=== PATIENT | male | born 1965 | race Hispanic/Latino ===

== ENCOUNTER 2023-08-09 23:03 | Inpatient (IN) | payer OTHER ==
[~2023-08-09] VITALS: Ht 177.8 cm; Wt 88.7 kg
[~2023-08-09 23:03] MED LIST: ACETAMINOP650 MG/201 PEG; ASPIRIN CHEW81 MG PEG; BAQSIMI3 MG PO; CAL-GEST200 MG; CARVEDILOL12.5 MG PO; CLOPIDOGREL75 MG PO; FERROUS SU300 MG/51 PEG; FUROSEMIDE40 MG/5 ML PEG; GUAIFENESIN-DM 15 ML GT; HYDRALAZINE HCL25 MG PO; LANSOPRAZOLE30 MG PEG; LASIX20 MG PO; LIPITOR20 MG PO; LYSIPLEX PLUS177 ML PEG; MAGNESIUM-ALUM360 ML PEG; MELATONIN3 MG GT; ONDANSETRON ODT4 MG PO; VITAMIN C500 MG/15 PEG
[2023-08-09 23:14] VITALS: TEMP 98.1
[2023-08-10] VITALS (30 sets, daily range): BP systolic 80–158; BP diastolic 57–94; PULSE 73–95; RESP 13–25; TEMP 97.5–97.9; O2SAT 52–100
[2023-08-10] LABS: BASOPHILS % 0.5 % (0.0-1.0); EOSINOPHILS # (AUTO) 0.2 (0.0-0.4); EOSINOPHILS % 3.5 % (0.0-6.0); HEMATOCRIT 31.2 % (38.2-49.6); HEMOGLOBIN 9.1 g/dL (14.0-18.0); LYMPHOCYTES # (AUTO) 0.5 (1.0-3.2); LYMPHOCYTES % 9.3 % (18.0-39.1); MEAN CORPUSCULAR HEMOGLOBIN 28.1 pg (28-32); MEAN CORPUSCULAR HGB CONC 29.2 g/dL (31-35); MEAN CORPUSCULAR VOLUME 96.3 fL (81-99); MONOCYTES # (AUTO) 0.5 (0.2-0.8); MONOCYTES % 9.7 % (4.4-11.3); NEUTROPHILS # (AUTO) 4.2 (2.1-6.9); NEUTROPHILS % 76.8 % (38.7-80.0); PLATELET COUNT 182 x10e3/uL (140-360); RED BLOOD COUNT 3.24 x10e6/uL (4.3-5.7); RED CELL DISTRIBUTION WIDTH 14.4 % (11.7-14.4); WHITE BLOOD COUNT 5.48 x10e3/uL (4.8-10.8)
[2023-08-10 00:16] LABS: BILIRUBIN,URINE NEGATIVE (NEGATIVE); CLARITY,URINE CLEAR (CLEAR); COLOR,URINE YELLOW (YELLOW); GLUCOSE, URINE 500 (NEGATIVE); KETONES,URINE NEGATIVE (NEGATIVE); LEUKOCYTE ESTERASE ,URINE NEGATIVE (NEGATIVE); NITRITE,URINE NEGATIVE (NEGATIVE); PH,URINE 6 (5 - 7); PROTEIN,URINE DIPSTICK 2+ (NEGATIVE); URINE UROBILINOGEN 0.2 mg/dL (0.2 - 1)
[2023-08-10 00:17] LABS: BACTERIA,URINE FEW /HPF; EPITHELIAL CELLS,URINE FEW /LPF; RBC,URINE 0-5 /HPF (0-5); WBC,URINE (MAN) 0-5 /HPF (0-5)
[2023-08-10 00:21] LABS: ALBUMIN 2.7 g/dL (3.5-5.0); ALBUMIN/GLOBULIN RATIO 0.7 (0.8-2.0); ANION GAP 11.7 mmol/L (8-16); BILIRUBIN,TOTAL 0.5 mg/dL (0.2-1.2); CALCIUM 7.8 mg/dL (8.4-10.2); CREATININE, SERUM 2.28 mg/dL (0.72-1.25); TOTAL PROTEIN 6.8 g/dL (6.5-8.1)
[2023-08-10 00:30] LABS: POTASSIUM 2.7 mmol/L (3.5-5.1)
[2023-08-10] MEDS ORDERED: IOPAMIDOL 370 MG/ML 100 ML INFUS..BTL INJ ONE (00:39)
[2023-08-10 00:48] LABS: TROPONIN I 0.015 ng/mL (0-0.300)
[2023-08-10] MEDS: SODIUM CHLORIDE 0.9% 1000ML 1,000 ML IV STA (00:55)
[2023-08-10] MEDS ORDERED: HYDRALAZINE HCL 20 MG/ML VIAL IV PRN (04:30)
[2023-08-10] MEDS ORDERED: HYDROCODONE/APAP 10MG-325MG TAB PO PRN (05:00)
[2023-08-10] MEDS ORDERED: DIPHENHYDRAMINE HCL 25 MG CAP PO PRN (05:00)
[2023-08-10] MEDS ORDERED: FUROSEMIDE20 MG PEG (05:25)
[2023-08-10] MEDS ORDERED: ATORVASTATIN CA80 MG PO (05:25)
[2023-08-10] MEDS ORDERED: JARDIANCE25 MG PO (05:25)
[2023-08-10] MEDS ORDERED: ASPIRIN81 MG PO (05:25)
[2023-08-10 07:54] LABS: TROPONIN I 0.011 ng/mL (0-0.300)
[2023-08-10] MEDS: POTASSIUM CHLORIDE 20MEQ/100ML 100 ML IV ONE ×2 (08:51→13:20)
[2023-08-10] MEDS: FUROSEMIDE INJ 10 MG/ML 4 ML VIAL IV SCH (08:53)
[2023-08-10] MEDS: POTASSIUM CHLORIDE 20 MEQ TAB CR PO ONE (08:53)
[2023-08-10] MEDS: ONDANSETRON HCL INJ 2MG/ML 2ML 2 MG/ML VIAL IV PRN (08:53)
[2023-08-10] MEDS: Morphine 4mg INJECTION 4 MG/ML INJ IV PRN (08:54)
[2023-08-10 11:26] LABS: MAGNESIUM 1.6 MG/DL (1.3-2.1)
[2023-08-10 11:32] LABS: TROPONIN I 0.009 ng/mL (0-0.300)
[2023-08-10 11:37] LABS: ALBUMIN 2.5 g/dL (3.5-5.0); ALBUMIN/GLOBULIN RATIO 0.8 (0.8-2.0); ANION GAP 14.7 mmol/L (8-16); BILIRUBIN,TOTAL 0.6 mg/dL (0.2-1.2); CALCIUM 7.1 mg/dL (8.4-10.2); CREATININE, SERUM 2.34 mg/dL (0.72-1.25); TOTAL PROTEIN 5.8 g/dL (6.5-8.1)
[2023-08-10 11:40] LABS: POTASSIUM 2.7 mmol/L (3.5-5.1)
[2023-08-10 13:29] LABS: ABG HCO3 42 mmol/L (22-26); ABG PCO2 106 mmHg (35-45); ABG PH 7.21 (7.35-7.45); ABG PO2 63 mmHg (80-105); ABG TCO2 45
[2023-08-10] MEDS: SODIUM CHLORIDE 0.9% 100 ML ONE (13:37)
[2023-08-10] MEDS ORDERED: FUROSEMIDE INJ 10 MG/ML 4 ML VIAL IV ONE (15:30)
[2023-08-10 15:47] LABS: TROPONIN I 0.048 ng/mL (0-0.300)
[2023-08-10] MEDS: FUROSEMIDE INJ 100 MG in SODIUM CHLORIDE 0.9% 90 ML IV SCH (15:54)
[2023-08-10 17:48] LABS: ABG PH 7.27 (7.35-7.45)
[2023-08-10 17:49] LABS: ABG HCO3 42 mmol/L (22-26); ABG PCO2 92 mmHg (35-45); ABG PO2 83 mmHg (80-105); ABG TCO2 45
[2023-08-10] MEDS: MAGNESIUM SULFATE 2GM/50ML 50 ML IV ONE (18:03)
[2023-08-10] MEDS ORDERED: DEXTROSE 50% SYRINGE 50 ML IV PRN (18:15)
[2023-08-10] MEDS: ATORVASTATIN 40 MG TAB PO SCH (20:13)
[2023-08-10] MEDS: CALCIUM CARBONATE 500 MG CHEWABLE TABS PO SCH (20:13)
[2023-08-10] MEDS: INSULIN LISPRO 100 UNIT/1 ML 3ML VIAL SQ SCH (20:18)
[2023-08-10] MEDS ORDERED: FUROSEMIDE INJ 10 MG/ML 4 ML VIAL IV SCH (21:00)
[2023-08-11] VITALS (27 sets, daily range): BP systolic 107–137; BP diastolic 74–99; PULSE 77–97; RESP 13–32; TEMP 97.8–98.3; O2SAT 89–100
[2023-08-11] MEDS: MUPIROCIN 2% OINT 22 GM TUBE TOP SCH (07:39)
[2023-08-11] MEDS: CLOPIDOGREL BISULFATE 75 MG TAB PO SCH (08:02)
[2023-08-11 08:55] LABS: BASOPHILS % 0.2 % (0.0-1.0); EOSINOPHILS # (AUTO) 0.1 (0.0-0.4); EOSINOPHILS % 1.4 % (0.0-6.0); HEMOGLOBIN 8.1 g/dL (14.0-18.0); LYMPHOCYTES # (AUTO) 0.5 (1.0-3.2); LYMPHOCYTES % 5.9 % (18.0-39.1); MEAN CORPUSCULAR HEMOGLOBIN 27.9 pg (28-32); MEAN CORPUSCULAR HGB CONC 28.9 g/dL (31-35); MEAN CORPUSCULAR VOLUME 96.6 fL (81-99); MONOCYTES # (AUTO) 0.5 (0.2-0.8); MONOCYTES % 5.4 % (4.4-11.3); NEUTROPHILS # (AUTO) 7.8 (2.1-6.9); NEUTROPHILS % 86.7 % (38.7-80.0); PLATELET COUNT 156 x10e3/uL (140-360); RED CELL DISTRIBUTION WIDTH 14.5 % (11.7-14.4); WHITE BLOOD COUNT 9.02 x10e3/uL (4.8-10.8)
[2023-08-11 09:16] LABS: ALBUMIN 2.3 g/dL (3.5-5.0); ALBUMIN/GLOBULIN RATIO 0.6 (0.8-2.0); BILIRUBIN,TOTAL 0.5 mg/dL (0.2-1.2); CALCIUM 7.3 mg/dL (8.4-10.2); CREATININE, SERUM 2.69 mg/dL (0.72-1.25); TOTAL PROTEIN 5.9 g/dL (6.5-8.1)
[2023-08-11 09:51] LABS: TROPONIN I 0.476 ng/mL (0-0.300)
[2023-08-11 10:55] LABS: ABG HCO3 42 mmol/L (22-26); ABG PCO2 77 mmHg (35-45); ABG PH 7.34 (7.35-7.45); ABG PO2 80 mmHg (80-105); ABG TCO2 44
[2023-08-11] MEDS: POTASSIUM CHLORIDE 20MEQ/100ML 100 ML IV SCH (16:05)
[2023-08-11] MEDS: CALCIUM CARBONATE 500 MG CHEWABLE TABS PO SCH (16:05)
[2023-08-11] MEDS: CARVEDILOL 3.125 MG TAB PO SCH (20:37)
[2023-08-12] VITALS (31 sets, daily range): BP systolic 125–151; BP diastolic 72–97; PULSE 77–102; RESP 0–33; TEMP 97.5–98.9; O2SAT 90–100
[2023-08-12 07:21] LABS: BASOPHILS % 0.3 % (0.0-1.0); EOSINOPHILS # (AUTO) 0.1 (0.0-0.4); EOSINOPHILS % 1.4 % (0.0-6.0); HEMATOCRIT 27.7 % (38.2-49.6); HEMOGLOBIN 8.3 g/dL (14.0-18.0); LYMPHOCYTES # (AUTO) 0.7 (1.0-3.2); LYMPHOCYTES % 8.3 % (18.0-39.1); MEAN CORPUSCULAR VOLUME 93.6 fL (81-99); MONOCYTES # (AUTO) 0.6 (0.2-0.8); MONOCYTES % 7.6 % (4.4-11.3); NEUTROPHILS # (AUTO) 6.4 (2.1-6.9); PLATELET COUNT 154 x10e3/uL (140-360); RED BLOOD COUNT 2.96 x10e6/uL (4.3-5.7); RED CELL DISTRIBUTION WIDTH 14.4 % (11.7-14.4); WHITE BLOOD COUNT 7.85 x10e3/uL (4.8-10.8)
[2023-08-12 07:53] LABS: ALBUMIN 2.4 g/dL (3.5-5.0); ALBUMIN/GLOBULIN RATIO 0.6 (0.8-2.0); ANION GAP 15.8 mmol/L (8-16); BILIRUBIN,TOTAL 0.7 mg/dL (0.2-1.2); CALCIUM 7.7 mg/dL (8.4-10.2); CREATININE, SERUM 2.66 mg/dL (0.72-1.25); TOTAL PROTEIN 6.1 g/dL (6.5-8.1)
[2023-08-12 07:58] LABS: POTASSIUM 2.8 mmol/L (3.5-5.1)
[2023-08-12] MEDS: POTASSIUM CHLORIDE 20 MEQ TAB CR PO SCH (08:33)
[2023-08-12 08:38] LABS: TOTAL PROTEIN, URINE 62.3 mg/dL (1-14)
[2023-08-12 08:40] LABS: TOTAL PROTEIN 24HR, URINE 1806.7 mg/24hr (50-100)
[2023-08-12 08:48] LABS: CREATININE,URINE RANDOM 13.13 mg/dL (63-166); TOTAL PROTEIN, URINE 42.8 mg/dL (1-14)
[2023-08-12] MEDS: KCL 20 MEQ PACKET/ ORAL SOLN NG ONE (11:45)
[2023-08-12] MEDS: ACETAZOLAMIDE SODIUM 500 MG/VIAL IV ONE (14:31)
[2023-08-12] MEDS ORDERED: POTASSIUM CHLORIDE 20 MEQ TAB CR PO SCH (17:00)
[2023-08-12] MEDS: KCL 20 MEQ PACKET/ ORAL SOLN NG SCH (20:31)
[2023-08-13] VITALS (38 sets, daily range): BP systolic 121–151; BP diastolic 78–105; PULSE 65–98; RESP 12–31; TEMP 97.9–98.6; O2SAT 94–100
[2023-08-13 06:16] LABS: BASOPHILS % 0.2 % (0.0-1.0); EOSINOPHILS # (AUTO) 0.1 (0.0-0.4); EOSINOPHILS % 2.6 % (0.0-6.0); HEMATOCRIT 25.9 % (38.2-49.6); HEMOGLOBIN 7.6 g/dL (14.0-18.0); LYMPHOCYTES # (AUTO) 0.7 (1.0-3.2); LYMPHOCYTES % 12.8 % (18.0-39.1); MEAN CORPUSCULAR HEMOGLOBIN 27.4 pg (28-32); MEAN CORPUSCULAR HGB CONC 29.3 g/dL (31-35); MEAN CORPUSCULAR VOLUME 93.5 fL (81-99); MONOCYTES # (AUTO) 0.6 (0.2-0.8); MONOCYTES % 10.9 % (4.4-11.3); NEUTROPHILS # (AUTO) 3.9 (2.1-6.9); NEUTROPHILS % 72.9 % (38.7-80.0); PLATELET COUNT 151 x10e3/uL (140-360); RED BLOOD COUNT 2.77 x10e6/uL (4.3-5.7); RED CELL DISTRIBUTION WIDTH 14.6 % (11.7-14.4); WHITE BLOOD COUNT 5.39 x10e3/uL (4.8-10.8)
[2023-08-13 09:36] LABS: ALBUMIN 2.3 g/dL (3.5-5.0); ALBUMIN/GLOBULIN RATIO 0.7 (0.8-2.0); ANION GAP 16.6 mmol/L (8-16); BILIRUBIN,TOTAL 0.6 mg/dL (0.2-1.2); CALCIUM 7.6 mg/dL (8.4-10.2); CREATININE, SERUM 2.75 mg/dL (0.72-1.25); POTASSIUM 3.6 mmol/L (3.5-5.1); TOTAL PROTEIN 5.6 g/dL (6.5-8.1)
[2023-08-13] MEDS: ACETAZOLAMIDE SODIUM 500 MG/VIAL IV SCH (10:02)
[2023-08-13 12:15] LABS: ABG PH 7.43 (7.35-7.45)
[2023-08-13 12:16] LABS: ABG HCO3 48 mmol/L (22-26); ABG PCO2 73 mmHg (35-45); ABG PO2 61 mmHg (80-105); ABG TCO2 > 50
[2023-08-13] MEDS: DEXTROSE 5% 250ML 250 ML IV ONE (21:15)
[2023-08-14] VITALS (8 sets, daily range): BP systolic 135–142; BP diastolic 77–82; PULSE 62–85; RESP 16–20; TEMP 98–99.6; O2SAT 96–100
[2023-08-14 06:43] LABS: BASOPHILS % 0.2 % (0.0-1.0); EOSINOPHILS # (AUTO) 0.1 (0.0-0.4); EOSINOPHILS % 2.6 % (0.0-6.0); HEMOGLOBIN 7.4 g/dL (14.0-18.0); LYMPHOCYTES # (AUTO) 0.7 (1.0-3.2); LYMPHOCYTES % 13.6 % (18.0-39.1); MEAN CORPUSCULAR HEMOGLOBIN 28.1 pg (28-32); MEAN CORPUSCULAR HGB CONC 29.6 g/dL (31-35); MEAN CORPUSCULAR VOLUME 95.1 fL (81-99); MONOCYTES # (AUTO) 0.6 (0.2-0.8); MONOCYTES % 11.8 % (4.4-11.3); NEUTROPHILS # (AUTO) 3.5 (2.1-6.9); NEUTROPHILS % 71.4 % (38.7-80.0); PLATELET COUNT 152 x10e3/uL (140-360); RED BLOOD COUNT 2.63 x10e6/uL (4.3-5.7); RED CELL DISTRIBUTION WIDTH 14.8 % (11.7-14.4); WHITE BLOOD COUNT 4.92 x10e3/uL (4.8-10.8)
[2023-08-14 07:08] LABS: ALBUMIN 2.2 g/dL (3.5-5.0); ALBUMIN/GLOBULIN RATIO 0.6 (0.8-2.0); ANION GAP 15.7 mmol/L (8-16); BILIRUBIN,TOTAL 0.5 mg/dL (0.2-1.2); CALCIUM 7.9 mg/dL (8.4-10.2); CREATININE, SERUM 2.75 mg/dL (0.72-1.25); POTASSIUM 3.7 mmol/L (3.5-5.1); TOTAL PROTEIN 5.9 g/dL (6.5-8.1)
[2023-08-14 07:26] LABS: FOLATE 7.7 ng/mL (7.0-15.4)
[2023-08-14 07:27] LABS: FERRITIN 72.54 ng/mL (21.81-274.66)
[2023-08-14] MEDS ORDERED: IRON SUCROSE 100 MG in SODIUM CHLORIDE 0.9% 100 ML IV SCH (13:00)
[2023-08-14] MEDS ORDERED: ACETAZOLAMIDE500 MG IV (13:58)
[2023-08-14] MEDS ORDERED: HYDRALAZIN20 MG/1 ML IV (13:58)
[2023-08-14] MEDS ORDERED: COREG3.125 MG PO (13:58)
[2023-08-14] MEDS ORDERED: TUMS200 MG PO (13:58)
[2023-08-14] MEDS ORDERED: DEXTROSE 50%-WA50 M1 IV (13:58)
[2023-08-14] MEDS ORDERED: POTASSIUM CHLO20 MEQ PEG (13:58)
[2023-08-14] MEDS ORDERED: FUROSEMIDE10 MG/1 M2 IV (13:58)
[2023-08-14] MEDS ORDERED: ONDANSETRON4 MG/2 M1 IV (13:58)
[2023-08-14] MEDS ORDERED: Insulin Lispro SQ (13:58)
[2023-08-14] MEDS ORDERED: MUPIROCIN22 GM TOP (13:58)
[2023-08-14] MEDS ORDERED: VENOFER100 MG/5 M IV (13:58)
[2023-08-14] MEDS: SODIUM FERRIC GLUCONATE COMPLX 125 MG in SODIUM CHLORIDE 0.9% 100 ML IV SCH (15:04)
[2023-08-20 04:39] LABS: ABG HCO3 42 mmol/L (22-26); ABG PCO2 92 mmHg (35-45); ABG PH 7.27 (7.35-7.45); ABG PO2 83 mmHg (80-105); ABG TCO2 45
[2023-08-20 04:39] LABS: ABG HCO3 42 mmol/L (22-26); ABG PH 7.21 (7.35-7.45); ABG PO2 63 mmHg (80-105); ABG TCO2 45
[2023-08-20 04:40] LABS: ABG HCO3 42 mmol/L (22-26); ABG PCO2 77 mmHg (35-45); ABG PH 7.34 (7.35-7.45); ABG PO2 80 mmHg (80-105); ABG TCO2 44
[2023-08-20 04:40] LABS: ABG HCO3 48 mmol/L (22-26); ABG PCO2 73 mmHg (35-45); ABG PH 7.43 (7.35-7.45); ABG PO2 61 mmHg (80-105); ABG TCO2 > 50
== END 2023-08-14 20:29 | disposition short-term general hospital (02) | DRG 291 ==
LOC: ER 23:10 → ERHOLD 08-10 03:54 → MED/SURG2 08-10 04:54 → ICU 08-10 12:25 → MED/SURG3 08-14 08:05
PROVIDERS: ADMIT Internal Medicine; ATTEND Internal Medicine
PROC: 5A09357 Assistance with Respiratory Ventilation, Less than 24 Consecutive Hours, Continuous Positive Airway Pressure (ICD-10-PCS; principal; 2023-08-10)
DX: I13.0 Hypertensive heart and chronic kidney disease with heart failure and stage 1 through stage 4 chronic kidney disease, or unspecified chronic kidney disease (principal); I50.23 Acute on chronic systolic (congestive) heart failure; J96.21 Acute and chronic respiratory failure with hypoxia; J96.22 Acute and chronic respiratory failure with hypercapnia; I69.351 Hemiplegia and hemiparesis following cerebral infarction affecting right dominant side; E87.0 Hyperosmolality and hypernatremia; K94.22 Gastrostomy infection; R62.7 Adult failure to thrive; E11.22 Type 2 diabetes mellitus with diabetic chronic kidney disease; Z99.81 Dependence on supplemental oxygen; N18.32 Chronic kidney disease, stage 3b; E87.6 Hypokalemia; E83.42 Hypomagnesemia; E78.49 Other hyperlipidemia; R19.7 Diarrhea, unspecified; D50.9 Iron deficiency anemia, unspecified; R13.10 Dysphagia, unspecified; Z11.52 Encounter for screening for COVID-19; Z79.82 Long term (current) use of aspirin; Z79.02 Long term (current) use of antithrombotics/antiplatelets; Z91.013 Allergy to seafood; Z53.8 Procedure and treatment not carried out for other reasons
CPT/HCPCS: 36415; 36600; 71045; 74177; 80053; 81001; 81050; 82550; 82570; 82607; 82728; 82746; 82805; 82948; 83540; 83605; 83690; 83735; 83880; 84132; 84156; 84466; 84484; 85025; 85045; 92950; 93005; 93306; 94660; 94799; 96372; 99284; J1940; J2270; J2405; J2916; J3475; J3480; J7050; J7070; Q9967; U0002

== ENCOUNTER 2023-10-19 20:44 | Emergency (ER) | payer OTHER ==
[~2023-10-19] VITALS: Ht 177.8 cm; Wt 88.5 kg
[~2023-10-19 20:44] MED LIST changes: +ACETAZOLAMIDE500 MG IV; +ASPIRIN81 MG PO; +ATORVASTATIN CA80 MG PO; +COREG3.125 MG PO; +DEXTROSE 50%-WA50 M1 IV; +FUROSEMIDE10 MG/1 M2 IV; +FUROSEMIDE20 MG PEG; +HYDRALAZIN20 MG/1 ML IV; +Insulin Lispro SQ; +JARDIANCE25 MG PO; +MUPIROCIN22 GM TOP; +ONDANSETRON4 MG/2 M1 IV; +POTASSIUM CHLO20 MEQ PEG; +TUMS200 MG PO; +VENOFER100 MG/5 M IV
[2023-10-19 20:50] VITALS: TEMP 98.1
[2023-10-19] MEDS ORDERED: DIATRIZOATE MEGL/DIATRIZOA SOD 30 ML BTL PO ONE (21:16)
[2023-10-19 23:30] VITALS: PULSE 78; RESP 18; O2SAT 100
== END 2023-10-19 23:07 | disposition home or self-care (01) ==
LOC: ER 20:46
DX: Z43.1 Encounter for attention to gastrostomy (principal); M25.562 Pain in left knee; I10 Essential (primary) hypertension; E11.9 Type 2 diabetes mellitus without complications; I50.9 Heart failure, unspecified; E78.5 Hyperlipidemia, unspecified; Z86.73 Personal history of transient ischemic attack (TIA), and cerebral infarction without residual deficits
CPT/HCPCS: 43762; 73562; 74018; 99283; Q9963

== ENCOUNTER 2023-10-29 16:12 | Inpatient (IN) | payer OTHER ==
[~2023-10-29] VITALS: Ht 177.8 cm; Wt 100.0 kg
[~2023-10-29 16:12] MED LIST changes: +MIDAZOLAM HCL 2 MG/2 ML VIAL ONE
[2023-10-29 16:13] VITALS: TEMP 97.7
[2023-10-29 17:00] VITALS: PULSE 93; RESP 18
[2023-10-29 18:11] LABS: BASOPHILS % 0.5 % (0.0-1.0); EOSINOPHILS # (AUTO) 0.1 (0.0-0.4); EOSINOPHILS % 1.1 % (0.0-6.0); HEMATOCRIT 33.4 % (38.2-49.6); HEMOGLOBIN 9.3 g/dL (14.0-18.0); LYMPHOCYTES # (AUTO) 0.5 (1.0-3.2); LYMPHOCYTES % 8.6 % (18.0-39.1); MEAN CORPUSCULAR HEMOGLOBIN 27.4 pg (28-32); MEAN CORPUSCULAR HGB CONC 27.8 g/dL (31-35); MEAN CORPUSCULAR VOLUME 98.5 fL (81-99); MONOCYTES # (AUTO) 0.5 (0.2-0.8); MONOCYTES % 7.3 % (4.4-11.3); NEUTROPHILS # (AUTO) 5.1 (2.1-6.9); NEUTROPHILS % 82.2 % (38.7-80.0); PLATELET COUNT 210 x10e3/uL (140-360); RED BLOOD COUNT 3.39 x10e6/uL (4.3-5.7); RED CELL DISTRIBUTION WIDTH 14.6 % (11.7-14.4); WHITE BLOOD COUNT 6.18 x10e3/uL (4.8-10.8)
[2023-10-29 18:20] LABS: INR 1.06; PROTHROMBIN TIME 14.3 seconds (11.9-14.5)
[2023-10-29 18:21] LABS: PARTIAL THROMBOPLASTIN TIME 31.4 seconds (23.8-35.5)
[2023-10-29 18:32] LABS: ALBUMIN 2.7 g/dL (3.5-5.0); ALBUMIN/GLOBULIN RATIO 0.7 (0.8-2.0); ALKALINE PHOSPHATASE 119 IU/L (40-150); BILIRUBIN,TOTAL 0.4 mg/dL (0.2-1.2); BLOOD UREA NITROGEN 34 mg/dL (7-26); BUN/CREATININE RATIO 13 (6-25); CALCIUM 8.1 mg/dL (8.4-10.2); CARBON DIOXIDE 28 mmol/L (22-29); CHLORIDE 104 mmol/L (98-107); CREATINE KINASE 135 IU/L (30-200); CREATININE, SERUM 2.56 mg/dL (0.72-1.25); EST GLOMERULAR FILTRATION RATE 28 ML/MIN (>=60); GLUCOSE 116 mg/dL (74-118); SODIUM 146 mmol/L (136-145); TOTAL PROTEIN 6.7 g/dL (6.5-8.1)
[2023-10-29 18:35] LABS: ALANINE AMINOTRANSFERASE < 6 IU/L (0-55)
[2023-10-29 18:39] LABS: TROPONIN I 0.014 ng/mL (0-0.300)
[2023-10-29 18:43] LABS: PHOSPHORUS 3.8 MG/DL (2.3-4.7)
[2023-10-29 20:14] VITALS: PULSE 87; RESP 18; O2SAT 97
[2023-10-29] MEDS ORDERED: ONDANSETRON HCL INJ 2MG/ML 2ML 2 MG/ML VIAL IV PRN (23:15)
[2023-10-29] MEDS ORDERED: SODIUM CHLORIDE FLUSH 10 ML SYR INJ PRN (23:15)
[2023-10-30] VITALS (13 sets, daily range): BP systolic 137–167; BP diastolic 81–96; PULSE 82–91; RESP 18–20; TEMP 97.5–97.9; O2SAT 92–98
[2023-10-30] MEDS ORDERED: LIPITOR10 MG PO (05:30)
[2023-10-30] MEDS ORDERED: LANSOPRAZOLE30 MG PO (05:30)
[2023-10-30] MEDS ORDERED: ONDANSETRON ODT4 MG PO (05:30)
[2023-10-30] MEDS ORDERED: HYDRALAZINE HCL25 MG PO (05:30)
[2023-10-30] MEDS ORDERED: FUROSEMIDE20 MG PEG (05:30)
[2023-10-30 05:59] LABS: BASOPHILS % 0.6 % (0.0-1.0); EOSINOPHILS # (AUTO) 0.1 (0.0-0.4); EOSINOPHILS % 1.9 % (0.0-6.0); HEMATOCRIT 31.2 % (38.2-49.6); HEMOGLOBIN 8.7 g/dL (14.0-18.0); LYMPHOCYTES # (AUTO) 0.5 (1.0-3.2); LYMPHOCYTES % 10.2 % (18.0-39.1); MEAN CORPUSCULAR HEMOGLOBIN 27.4 pg (28-32); MEAN CORPUSCULAR HGB CONC 27.9 g/dL (31-35); MEAN CORPUSCULAR VOLUME 98.4 fL (81-99); MONOCYTES # (AUTO) 0.5 (0.2-0.8); MONOCYTES % 10.6 % (4.4-11.3); NEUTROPHILS # (AUTO) 3.7 (2.1-6.9); NEUTROPHILS % 76.5 % (38.7-80.0); PLATELET COUNT 184 x10e3/uL (140-360); RED BLOOD COUNT 3.17 x10e6/uL (4.3-5.7); RED CELL DISTRIBUTION WIDTH 14.6 % (11.7-14.4); WHITE BLOOD COUNT 4.79 x10e3/uL (4.8-10.8)
[2023-10-30 06:32] LABS: ALBUMIN 2.4 g/dL (3.5-5.0); ALBUMIN/GLOBULIN RATIO 0.6 (0.8-2.0); ALKALINE PHOSPHATASE 106 IU/L (40-150); ANION GAP 16.8 mmol/L (8-16); BILIRUBIN,TOTAL 0.4 mg/dL (0.2-1.2); BLOOD UREA NITROGEN 33 mg/dL (7-26); BUN/CREATININE RATIO 14 (6-25); CALCIUM 7.8 mg/dL (8.4-10.2); CARBON DIOXIDE 27 mmol/L (22-29); CHLORIDE 103 mmol/L (98-107); CREATININE, SERUM 2.39 mg/dL (0.72-1.25); EST GLOMERULAR FILTRATION RATE 31 ML/MIN (>=60); GLUCOSE 70 mg/dL (74-118); SODIUM 144 mmol/L (136-145); TOTAL PROTEIN 6.1 g/dL (6.5-8.1)
[2023-10-30 06:37] LABS: ALANINE AMINOTRANSFERASE < 6 IU/L (0-55)
[2023-10-30 06:38] LABS: POTASSIUM 2.8 mmol/L (3.5-5.1)
[2023-10-30 06:43] LABS: TROPONIN I 0.079 ng/mL (0-0.300)
[2023-10-30] MEDS: INSULIN REGULAR, HUMAN 100 UNIT/1 ML SQ SCH (07:30)
[2023-10-30 07:46] LABS: COLOR,URINE YELLOW (YELLOW)
[2023-10-30 07:47] LABS: CLARITY,URINE SL CLOUDY (CLEAR); GLUCOSE, URINE 2+ (NEGATIVE); KETONES,URINE NEGATIVE (NEGATIVE); LEUKOCYTE ESTERASE ,URINE TRACE (NEGATIVE); NITRITE,URINE NEGATIVE (NEGATIVE); PH,URINE 5.5 (5 - 7); PROTEIN,URINE DIPSTICK >=300 (NEGATIVE)
[2023-10-30 07:48] LABS: BILIRUBIN,URINE NEGATIVE (NEGATIVE); URINE UROBILINOGEN 0.2 mg/dL (0.2 - 1)
[2023-10-30 07:55] LABS: EPITHELIAL CELLS,URINE RARE /LPF
[2023-10-30 07:56] LABS: BACTERIA,URINE MODERATE /HPF
[2023-10-30 07:58] LABS: WBC,URINE (MAN) >50 /HPF (0-5)
[2023-10-30 08:00] LABS: TRANSITIONAL EPI CELLS,URINE RARE
[2023-10-30] MEDS: POTASSIUM CHLORIDE 20MEQ/100ML 100 ML IV ONE ×2 (08:08→10:38)
[2023-10-30] MEDS: D5.45%NS/KCL 20MEQ 1,000 ML IV SCH (08:33)
[2023-10-30] MEDS: VANCOMYCIN 250MG/5ML ORAL SOLN PEG SCH (13:00)
[2023-10-30] MEDS ORDERED: FENTANYL CITRATE/PF 100MCG/2 ML INJ ONE (14:43)
[2023-10-30 17:26] LABS: BODY FLUID APPEARANCE TURBID; BODY FLUID COLOR RED; BODY FLUID TYPE PLEURAL
[2023-10-30 17:30] LABS: CREATININE,URINE RANDOM 66.57 mg/dL (63-166)
[2023-10-30] MEDS: POTASSIUM CHLORIDE 20 MEQ TAB CR PO ONE (17:34)
[2023-10-30] MEDS: FUROSEMIDE INJ 10 MG/ML 2 ML VIAL IV SCH (17:34)
[2023-10-30 17:45] LABS: RBC,BODY FLUID 250000 cells/uL; WBC,BODY FLUID 342 cells/uL
[2023-10-30 17:48] LABS: TOTAL PROTEIN, URINE 278.1 mg/dL (1-14)
[2023-10-30 17:56] LABS: TROPONIN I 0.071 ng/mL (0-0.300)
[2023-10-30 18:14] LABS: LYMPHOCYTES,BODY FLUID 9 %; MONO/MACROPHG,BODY FLUID 64 %; NEUTROPHILS,BODY FLUID 27 %; TOTAL CELLS COUNTED (DIFF) 100
[2023-10-30] MEDS: DEXTROSE 50% SYRINGE 50 ML IV PRN (20:57)
[2023-10-30 20:58] LABS: ANION GAP 15.3 mmol/L (8-16); CALCIUM 7.9 mg/dL (8.4-10.2); CREATININE, SERUM 2.37 mg/dL (0.72-1.25)
[2023-10-30] MEDS: ATORVASTATIN 40 MG TAB PO SCH (21:00)
[2023-10-30 21:07] LABS: POTASSIUM 3.3 mmol/L (3.5-5.1)
[2023-10-30 21:12] LABS: CHOL/HDL RATIO 3.9 (3.9-4.7)
[2023-10-30 21:33] LABS: FERRITIN 62.59 ng/mL (21.81-274.66); THYROID STIMULATING HORMONE 3.269 uIU/mL (0.350-4.940)
[2023-10-30] MEDS: HYDRALAZINE HCL 20 MG/ML VIAL IV PRN (22:43)
[2023-10-31] VITALS (9 sets, daily range): BP systolic 127–177; BP diastolic 69–95; PULSE 66–103; RESP 18–22; TEMP 97.8–98.6; O2SAT 93–100
[2023-10-31 00:10] LABS: FOLATE 12.6 ng/mL (7.0-15.4)
[2023-10-31] MEDS: FUROSEMIDE INJ 10 MG/ML 4 ML VIAL IV ONE (01:54)
[2023-10-31 05:28] LABS: BASOPHILS % 0.2 % (0.0-1.0); EOSINOPHILS % 0.1 % (0.0-6.0); HEMATOCRIT 32.3 % (38.2-49.6); HEMOGLOBIN 9.2 g/dL (14.0-18.0); LYMPHOCYTES # (AUTO) 0.4 (1.0-3.2); LYMPHOCYTES % 2.8 % (18.0-39.1); MEAN CORPUSCULAR HEMOGLOBIN 27.4 pg (28-32); MEAN CORPUSCULAR HGB CONC 28.5 g/dL (31-35); MEAN CORPUSCULAR VOLUME 96.1 fL (81-99); MONOCYTES # (AUTO) 0.9 (0.2-0.8); MONOCYTES % 6.1 % (4.4-11.3); NEUTROPHILS % 90.2 % (38.7-80.0); PLATELET COUNT 212 x10e3/uL (140-360); RED BLOOD COUNT 3.36 x10e6/uL (4.3-5.7); RED CELL DISTRIBUTION WIDTH 14.5 % (11.7-14.4); WHITE BLOOD COUNT 14.37 x10e3/uL (4.8-10.8)
[2023-10-31 06:03] LABS: ANION GAP 13.8 mmol/L (8-16); CALCIUM 7.8 mg/dL (8.4-10.2); CREATININE, SERUM 2.33 mg/dL (0.72-1.25)
[2023-10-31 06:04] LABS: POTASSIUM 2.8 mmol/L (3.5-5.1)
[2023-10-31] MEDS ORDERED: DIATRIZOATE MEGL/DIATRIZOA SOD 30 ML BTL PO ONE (08:33)
[2023-10-31] MEDS ORDERED: POTASSIUM CHLORIDE 20 MEQ TAB CR PO SCH (09:00)
[2023-10-31] MEDS: KCL 20 MEQ PACKET/ ORAL SOLN PEG SCH ×2 (09:36→17:42)
[2023-10-31] MEDS: ASPIRIN 81 MG CHEW TAB PEG SCH (09:36)
[2023-10-31] MEDS: IRON SUCROSE 100 MG in SODIUM CHLORIDE 0.9% 100 ML IV SCH (09:38)
[2023-10-31] MEDS: POTASSIUM CHLORIDE 20MEQ/100ML 100 ML IV SCH (11:18)
[2023-10-31 14:50] LABS: TOTAL PROTEIN,BODY FLUID 1.9 g/dL
[2023-10-31] MEDS: CARVEDILOL 12.5 MG TAB PO SCH (17:41)
[2023-10-31] MEDS: LISINOPRIL 10 MG TAB PO ONE (17:41)
[2023-11-01] VITALS (27 sets, daily range): BP systolic 112–170; BP diastolic 68–100; PULSE 69–91; RESP 14–36; TEMP 97.5–98.1; O2SAT 88–100
[2023-11-01 05:59] LABS: BASOPHILS % 0.2 % (0.0-1.0); EOSINOPHILS # (AUTO) 0.2 (0.0-0.4); EOSINOPHILS % 5.7 % (0.0-6.0); HEMATOCRIT 29.4 % (38.2-49.6); HEMOGLOBIN 8.5 g/dL (14.0-18.0); LYMPHOCYTES # (AUTO) 0.6 (1.0-3.2); LYMPHOCYTES % 13.6 % (18.0-39.1); MEAN CORPUSCULAR HEMOGLOBIN 27.5 pg (28-32); MEAN CORPUSCULAR HGB CONC 28.9 g/dL (31-35); MEAN CORPUSCULAR VOLUME 95.1 fL (81-99); MONOCYTES # (AUTO) 0.5 (0.2-0.8); NEUTROPHILS # (AUTO) 2.9 (2.1-6.9); NEUTROPHILS % 69.3 % (38.7-80.0); PLATELET COUNT 177 x10e3/uL (140-360); RED BLOOD COUNT 3.09 x10e6/uL (4.3-5.7); RED CELL DISTRIBUTION WIDTH 14.9 % (11.7-14.4)
[2023-11-01 06:43] LABS: ANION GAP 13.3 mmol/L (8-16); CALCIUM 7.6 mg/dL (8.4-10.2); CREATININE, SERUM 2.38 mg/dL (0.72-1.25); MAGNESIUM 1.6 MG/DL (1.3-2.1); POTASSIUM 3.3 mmol/L (3.5-5.1)
[2023-11-01] MEDS: LISINOPRIL 10 MG TAB PO SCH (08:41)
[2023-11-01] MEDS ORDERED: LIDOCAINE HCL 2% LOCAL INJ 5 ML SDV VIAL INJ ONE (12:21)
[2023-11-01] MEDS ORDERED: ETOMIDATE 2 MG/ML 10 ML INJ IV ONE (12:21)
[2023-11-01] MEDS ORDERED: ONDANSETRON HCL 4 MG ORAL DISINTEGRATING TAB PO PRN (13:45)
[2023-11-01 17:42] LABS: ABG PCO2 75 mmHg (35-45); ABG PH 7.31 (7.35-7.45); ABG PO2 54 mmHg (80-105)
[2023-11-01 17:43] LABS: ABG HCO3 38 mmol/L (22-26); ABG TCO2 41
[2023-11-01] MEDS: MAGNESIUM SULFATE 2GM/50ML 50 ML IV ONE (18:06)
[2023-11-01] MEDS: FUROSEMIDE INJ 10 MG/ML 4 ML VIAL IV ONE (18:07)
[2023-11-01] MEDS: ALBUTEROL/IPRATROPIUM 3 ML NEB ONE (20:01)
[2023-11-02] VITALS (40 sets, daily range): BP systolic 107–151; BP diastolic 59–89; PULSE 64–93; RESP 13–32; TEMP 97.7–98.8; O2SAT 88–100
[2023-11-02 06:38] LABS: ANION GAP 12.5 mmol/L (8-16); CALCIUM 7.7 mg/dL (8.4-10.2); CREATININE, SERUM 2.39 mg/dL (0.72-1.25); POTASSIUM 3.5 mmol/L (3.5-5.1)
[2023-11-02] MEDS ORDERED: ALBUMIN 25% 25GM 100ML 0.25 GM/ML BTL IV SCH (08:00)
[2023-11-02] MEDS: ALBUMIN 25% 25GM 100ML 100 ML IV SCH (08:20)
[2023-11-02] MEDS ORDERED: POTASSIUM CHLORIDE 20MEQ/100ML 200 ML IV ONE (08:30)
[2023-11-02] MEDS: FUROSEMIDE INJ 10 MG/ML 4 ML VIAL IV SCH (10:41)
[2023-11-02] MEDS: POTASSIUM CHLORIDE 20MEQ/100ML 200 ML IV ONE (14:08)
[2023-11-03] VITALS (30 sets, daily range): BP systolic 101–150; BP diastolic 56–89; PULSE 67–95; RESP 9–38; TEMP 97.7–98.9; O2SAT 89–100
[2023-11-03 06:56] LABS: BASOPHILS % 0.3 % (0.0-1.0); EOSINOPHILS # (AUTO) 0.2 (0.0-0.4); EOSINOPHILS % 2.1 % (0.0-6.0); HEMATOCRIT 28.5 % (38.2-49.6); LYMPHOCYTES # (AUTO) 0.5 (1.0-3.2); LYMPHOCYTES % 7.4 % (18.0-39.1); MEAN CORPUSCULAR HEMOGLOBIN 27.9 pg (28-32); MEAN CORPUSCULAR HGB CONC 28.1 g/dL (31-35); MEAN CORPUSCULAR VOLUME 99.3 fL (81-99); MONOCYTES # (AUTO) 0.4 (0.2-0.8); MONOCYTES % 5.5 % (4.4-11.3); NEUTROPHILS # (AUTO) 5.9 (2.1-6.9); NEUTROPHILS % 84.3 % (38.7-80.0); PLATELET COUNT 142 x10e3/uL (140-360); RED BLOOD COUNT 2.87 x10e6/uL (4.3-5.7); RED CELL DISTRIBUTION WIDTH 15.1 % (11.7-14.4); WHITE BLOOD COUNT 7.05 x10e3/uL (4.8-10.8)
[2023-11-03 07:20] LABS: ALBUMIN 2.6 g/dL (3.5-5.0); ALBUMIN/GLOBULIN RATIO 0.8 (0.8-2.0); ALKALINE PHOSPHATASE 89 IU/L (40-150); ANION GAP 13.6 mmol/L (8-16); BILIRUBIN,TOTAL 0.7 mg/dL (0.2-1.2); BLOOD UREA NITROGEN 32 mg/dL (7-26); BUN/CREATININE RATIO 12 (6-25); CALCIUM 8.1 mg/dL (8.4-10.2); CARBON DIOXIDE 37 mmol/L (22-29); CHLORIDE 102 mmol/L (98-107); CREATININE, SERUM 2.73 mg/dL (0.72-1.25); EST GLOMERULAR FILTRATION RATE 26 ML/MIN (>=60); GLUCOSE 98 mg/dL (74-118); POTASSIUM 3.6 mmol/L (3.5-5.1); SODIUM 149 mmol/L (136-145); TOTAL PROTEIN 5.9 g/dL (6.5-8.1)
[2023-11-03 07:24] LABS: ALANINE AMINOTRANSFERASE < 6 IU/L (0-55)
[2023-11-03] MEDS: ACETAZOLAMIDE SODIUM 500 MG/VIAL IV SCH (09:36)
[2023-11-03 12:11] LABS: ABG PCO2 57 mmHg (35-45); ABG PH 7.44 (7.35-7.45)
[2023-11-03 12:12] LABS: ABG HCO3 39 mmol/L (22-26); ABG PO2 47 mmHg (80-105); ABG TCO2 40
[2023-11-04] VITALS (14 sets, daily range): BP systolic 112–138; BP diastolic 66–84; PULSE 79–111; RESP 12–24; TEMP 98.1–99.2; O2SAT 95–100
[2023-11-04 07:34] LABS: BASOPHILS % 0.4 % (0.0-1.0); EOSINOPHILS # (AUTO) 0.2 (0.0-0.4); EOSINOPHILS % 3.4 % (0.0-6.0); HEMATOCRIT 27.3 % (38.2-49.6); HEMOGLOBIN 7.7 g/dL (14.0-18.0); LYMPHOCYTES # (AUTO) 0.7 (1.0-3.2); LYMPHOCYTES % 10.4 % (18.0-39.1); MEAN CORPUSCULAR HEMOGLOBIN 28.1 pg (28-32); MEAN CORPUSCULAR HGB CONC 28.2 g/dL (31-35); MEAN CORPUSCULAR VOLUME 99.6 fL (81-99); MONOCYTES # (AUTO) 0.4 (0.2-0.8); MONOCYTES % 6.1 % (4.4-11.3); NEUTROPHILS # (AUTO) 5.6 (2.1-6.9); NEUTROPHILS % 79.4 % (38.7-80.0); PLATELET COUNT 140 x10e3/uL (140-360); RED BLOOD COUNT 2.74 x10e6/uL (4.3-5.7); RED CELL DISTRIBUTION WIDTH 15.4 % (11.7-14.4); WHITE BLOOD COUNT 7.03 x10e3/uL (4.8-10.8)
[2023-11-04 07:59] LABS: ALBUMIN 2.3 g/dL (3.5-5.0); ALBUMIN/GLOBULIN RATIO 0.6 (0.8-2.0); ALKALINE PHOSPHATASE 111 IU/L (40-150); ANION GAP 10.6 mmol/L (8-16); BILIRUBIN,TOTAL 0.6 mg/dL (0.2-1.2); BLOOD UREA NITROGEN 34 mg/dL (7-26); BUN/CREATININE RATIO 13 (6-25); CALCIUM 7.7 mg/dL (8.4-10.2); CARBON DIOXIDE 37 mmol/L (22-29); CHLORIDE 94 mmol/L (98-107); EST GLOMERULAR FILTRATION RATE 27 ML/MIN (>=60); GLUCOSE 152 mg/dL (74-118); POTASSIUM 3.6 mmol/L (3.5-5.1); SODIUM 138 mmol/L (136-145); TOTAL PROTEIN 5.9 g/dL (6.5-8.1)
[2023-11-04 08:04] LABS: ALANINE AMINOTRANSFERASE < 6 IU/L (0-55)
[2023-11-04] MEDS: ACETAZOLAMIDE SODIUM 500 MG/VIAL IV ONE (12:36)
[2023-11-05] VITALS (9 sets, daily range): BP systolic 111–132; BP diastolic 75–87; PULSE 78–86; RESP 17–20; TEMP 97.8–98.7; O2SAT 96–100
[2023-11-05 05:45] LABS: BASOPHILS % 0.3 % (0.0-1.0); EOSINOPHILS # (AUTO) 0.3 (0.0-0.4); EOSINOPHILS % 3.7 % (0.0-6.0); HEMATOCRIT 30.1 % (38.2-49.6); HEMOGLOBIN 8.1 g/dL (14.0-18.0); LYMPHOCYTES # (AUTO) 0.7 (1.0-3.2); LYMPHOCYTES % 10.1 % (18.0-39.1); MEAN CORPUSCULAR HEMOGLOBIN 27.1 pg (28-32); MEAN CORPUSCULAR HGB CONC 26.9 g/dL (31-35); MEAN CORPUSCULAR VOLUME 100.7 fL (81-99); MONOCYTES # (AUTO) 0.5 (0.2-0.8); MONOCYTES % 7.3 % (4.4-11.3); NEUTROPHILS # (AUTO) 5.6 (2.1-6.9); NEUTROPHILS % 78.2 % (38.7-80.0); PLATELET COUNT 118 x10e3/uL (140-360); RED BLOOD COUNT 2.99 x10e6/uL (4.3-5.7); RED CELL DISTRIBUTION WIDTH 15.2 % (11.7-14.4); WHITE BLOOD COUNT 7.22 x10e3/uL (4.8-10.8)
[2023-11-05 06:27] LABS: ANION GAP 10.9 mmol/L (8-16); CALCIUM 7.7 mg/dL (8.4-10.2); CREATININE, SERUM 2.75 mg/dL (0.72-1.25); MAGNESIUM 1.8 MG/DL (1.3-2.1); POTASSIUM 3.9 mmol/L (3.5-5.1)
[2023-11-06] VITALS (10 sets, daily range): BP systolic 119–130; BP diastolic 74–87; PULSE 58–82; RESP 16–19; TEMP 97.2–98.1; O2SAT 95–100
[2023-11-06 06:41] LABS: ANION GAP 13.1 mmol/L (8-16); CALCIUM 7.7 mg/dL (8.4-10.2); CREATININE, SERUM 2.78 mg/dL (0.72-1.25); POTASSIUM 4.1 mmol/L (3.5-5.1)
[2023-11-06] MEDS: IRON-VITAMIN-MINERAL CAPSULE PO SCH (10:02)
[2023-11-06 16:09] LABS: ANION GAP 12.3 mmol/L (8-16); CALCIUM 7.8 mg/dL (8.4-10.2); CREATININE, SERUM 2.84 mg/dL (0.72-1.25); POTASSIUM 4.3 mmol/L (3.5-5.1)
[2023-11-06] MEDS ORDERED: LACTOBACILLUS ACIDOPHILUS CAPSULE PO SCH (17:00)
[2023-11-06] MEDS: LACTOBACILLUS ACIDOPHILUS CAPSULE PEG SCH (17:01)
[2023-11-06] MEDS: FUROSEMIDE 20 MG TAB PO ONE (17:04)
[2023-11-07] VITALS (10 sets, daily range): BP systolic 114–148; BP diastolic 62–91; PULSE 64–79; RESP 18–20; TEMP 97.6–98.1; O2SAT 95–99
[2023-11-07 05:48] LABS: BASOPHILS % 0.7 % (0.0-1.0); EOSINOPHILS # (AUTO) 0.3 (0.0-0.4); EOSINOPHILS % 5.5 % (0.0-6.0); HEMATOCRIT 28.2 % (38.2-49.6); HEMOGLOBIN 7.9 g/dL (14.0-18.0); LYMPHOCYTES # (AUTO) 0.6 (1.0-3.2); LYMPHOCYTES % 9.8 % (18.0-39.1); MEAN CORPUSCULAR HEMOGLOBIN 28.1 pg (28-32); MEAN CORPUSCULAR VOLUME 100.4 fL (81-99); MONOCYTES # (AUTO) 0.5 (0.2-0.8); MONOCYTES % 9.1 % (4.4-11.3); NEUTROPHILS # (AUTO) 4.2 (2.1-6.9); NEUTROPHILS % 74.5 % (38.7-80.0); PLATELET COUNT 101 x10e3/uL (140-360); RED BLOOD COUNT 2.81 x10e6/uL (4.3-5.7); RED CELL DISTRIBUTION WIDTH 14.8 % (11.7-14.4); WHITE BLOOD COUNT 5.59 x10e3/uL (4.8-10.8)
[2023-11-07 06:13] LABS: ALBUMIN 2.2 g/dL (3.5-5.0); ALBUMIN/GLOBULIN RATIO 0.6 (0.8-2.0); BILIRUBIN,TOTAL 0.3 mg/dL (0.2-1.2); CREATININE, SERUM 2.94 mg/dL (0.72-1.25); TOTAL PROTEIN 5.9 g/dL (6.5-8.1)
[2023-11-07] MEDS: FUROSEMIDE 20 MG TAB PO SCH (09:41)
[2023-11-07] MEDS: EPOETIN ALFA-EPBX 10,000 UNIT/ML VIAL SC SCH (18:46)
[2023-11-08] VITALS (11 sets, daily range): BP systolic 131–152; BP diastolic 72–86; PULSE 71–85; RESP 16–20; TEMP 97.5–98.9; O2SAT 93–98
[2023-11-08 05:57] LABS: ANION GAP 12.9 mmol/L (8-16); CREATININE, SERUM 2.78 mg/dL (0.72-1.25); POTASSIUM 3.9 mmol/L (3.5-5.1)
[2023-11-08] MEDS: NYSTATIN/TRIAMCINOLONE 15 GM CR TOP SCH (06:06)
[2023-11-09] VITALS (10 sets, daily range): BP systolic 138–151; BP diastolic 79–86; PULSE 77–83; RESP 16–18; TEMP 97.7–99.8; O2SAT 95–98
[2023-11-09 07:46] LABS: ANION GAP 12.9 mmol/L (8-16); CALCIUM 8.3 mg/dL (8.4-10.2); CREATININE, SERUM 2.68 mg/dL (0.72-1.25); POTASSIUM 3.9 mmol/L (3.5-5.1)
[2023-11-09] MEDS: FUROSEMIDE 40 MG TAB PO SCH (08:55)
[2023-11-09] MEDS: LOPERAMIDE HCL 2 MG/15 ML UDC PEG PRN (08:55)
[2023-11-09] MEDS ORDERED: COREG12.5 MG PO (15:44)
[2023-11-09] MEDS ORDERED: FUROSEMIDE40 MG PO (15:44)
[2023-11-09] MEDS ORDERED: HUMULIN R100 UNIT/2 SQ (15:44)
[2023-11-09] MEDS ORDERED: ATORVASTATIN CA40 MG PO (15:44)
[2023-11-09] MEDS ORDERED: CEPHALEXIN500 MG PO (15:44)
== END 2023-11-09 20:45 | DRG 291 ==
LOC: ER 17:00 → ERHOLD 23:05 → MED/SURG2 10-30 00:33 → ICU 11-01 17:26 → MED/SURG2 11-04 11:13
PROVIDERS: ADMIT Internal Medicine; ATTEND Internal Medicine
PROC: 0DJ08ZZ Inspection of Upper Intestinal Tract, Via Natural or Artificial Opening Endoscopic (ICD-10-PCS; 2023-11-01)
PROC: 0D20XUZ Change Feeding Device in Upper Intestinal Tract, External Approach (ICD-10-PCS; principal; 2023-11-01 15:23)
DX: I13.0 Hypertensive heart and chronic kidney disease with heart failure and stage 1 through stage 4 chronic kidney disease, or unspecified chronic kidney disease (principal); I50.43 Acute on chronic combined systolic (congestive) and diastolic (congestive) heart failure; J96.20 Acute and chronic respiratory failure, unspecified whether with hypoxia or hypercapnia; N18.4 Chronic kidney disease, stage 4 (severe); J90 Pleural effusion, not elsewhere classified; N39.0 Urinary tract infection, site not specified; I69.351 Hemiplegia and hemiparesis following cerebral infarction affecting right dominant side; E87.0 Hyperosmolality and hypernatremia; K94.23 Gastrostomy malfunction; K52.9 Noninfective gastroenteritis and colitis, unspecified; R13.12 Dysphagia, oropharyngeal phase; E87.6 Hypokalemia; B96.5 Pseudomonas (aeruginosa) (mallei) (pseudomallei) as the cause of diseases classified elsewhere; R80.9 Proteinuria, unspecified; D50.9 Iron deficiency anemia, unspecified; E78.5 Hyperlipidemia, unspecified; R62.7 Adult failure to thrive; L89.152 Pressure ulcer of sacral region, stage 2; L30.9 Dermatitis, unspecified; D69.6 Thrombocytopenia, unspecified; Z68.31 Body mass index [BMI] 31.0-31.9, adult; R26.89 Other abnormalities of gait and mobility
CPT/HCPCS: 32555; 36415; 36556; 36600; 43246; 71045; 71046; 71250; 74018; 74176; 74470; 76937; 77001; 80048; 80053; 80061; 81001; 82550; 82570; 82607; 82728; 82746; 82805; 82948; 83540; 83615; 83690; 83735; 83880; 83993; 84100; 84156; 84157; 84443; 84466; 84478; 84484; 85025; 85610; 85730; 87070; 87071; 87075; 87086; 87186; 87205; 87324; 87449; 89051; 93005; 93306; 94660; 94799; 96372; 99252; 99284; C1729; J0360; J1756; J1940; J2001; J2250; J2470; J2543; J3475; J3480; J7050; J7799; P9047; Q9963